=== PATIENT | female | born 1970 | race African-American/Black ===

== ENCOUNTER 2016-12-31 12:28 | Emergency (ER) | payer OTHER ==
[2016-12-31 12:33] VITALS: BP 150/99; PULSE 90; TEMP 98; BMI 26.4
[2016-12-31] MEDS ORDERED: morphine CARPU-JECT 2 MG/1 ML DISP.SYRIN SQ ONE (13:15)
[2016-12-31] MEDS ORDERED: morphine CARPU-JECT 4 MG/1 ML DISP.SYRIN ONE (13:18)
--- NOTE | 2016-12-31 13:30 | PDOC ---
History of Present Illness - General Chief Complaint: Nasal Bleeding Stated Complaint: NASAL BLEEDING Time Seen by Provider: 12/31/16 12:49 History Source: Patient Exam Limitations: No Limitations - History of Present Illness Initial Comments: 12/31/16 13:05 46-year-old female with history of hypertension presents the ED for evaluation of surgical site. patient states has been draining brownish blood from her nose along with feeling as if something is in the back of her throat since yesterday. Patient states had a deviated septum with polyp removal done yesterday without difficulty. Patient also complaining of oxycodone upsetting her stomach which she is supposed to take every 4 hours and Tylenol every 6 hours for breakthrough pain. Patient has no other complaints at this time. Timing/Duration: constant (pressure), intermittent (drainage) Severity: mild Associated Symptoms: denies: headaches, nausea/vomiting, shortness of breath Past History - Travel Traveled outside of the country in the last 30 days: No - Past Medical History Allergies/Adverse Reactions: Allergies Allergy/AdvReac Type Severity Reaction Status Date / Time No Known Allergies Allergy Verified 12/31/16 12:33 Home Medications: Ambulatory Orders Oxycodone HCl 5 mg PO QID PRN 12/31/16 - Surgical History Abdominal Surgery: Yes (HEMMORRHOIDS) - Psycho/Social/Smoking Cessation Hx Suicidal Ideation: No Smoking History: Never smoked Information on smoking cessation initiated: No Patient Lives Alone: No Review of Systems - Review of Systems Able to Perform ROS?: Yes Constitutional: No: Symptoms Reported HEENTM: Yes: Nose Pain, Nose Congestion, Nose Bleeding. No: Throat Pain, Throat Swelling, Difficulty Swallowing Respiratory: No: Symptoms reported Cardiac (ROS): No: Symptoms Reported ABD/GI: No: Nausea Integumentary: No: Symptoms Reported Neurological: Yes: Headache (mild frontal) Hematologic/Lymphatic: No: Symptoms Reported *Physical Exam - Vital Signs Last Vital Signs Temp Pulse Resp BP Pulse Ox 98 F 90 18 150/99 98 12/31/16 12:29 12/31/16 12:29 12/31/16 12:29 12/31/16 12:29 12/31/16 12:29 - Physical Exam General Appearance: Yes: Nourished, Appropriately Dressed. No: Apparent Distress HEENT: positive: EOMI, JAYNE, TMs Normal, Pharynx Normal (no dry blood to posterior pharynx. Uvula midline), Other (noted surgical plastic device to bilateral nasal passages with packing. Minimal oozing of brownish blood noted. Able to breathe via nares) Neck: positive: Supple. negative: Lymphadenopathy (R), Lymphadenopathy (L) Respiratory/Chest: positive: Lungs Clear, Normal Breath Sounds. negative: Respiratory Distress, Accessory Muscle Use Cardiovascular: positive: Regular Rhythm, Regular Rate. negative: Murmur Gastrointestinal/Abdominal: positive: Soft. negative: Tenderness Integumentary: positive: Normal Color, Warm, Moist Neurologic: positive: Motor Strength 5/5 (ambulatory) ED Treatment Course - Medications Given in the ED: ED Medications Discontinued Medications Generic Name Dose Route Start Last Admin Trade Name Tania PRN Reason Stop Dose Admin Morphine Sulfate 4 mg 12/31/16 13:15 12/31/16 13:21 Morphine Injection - SQ 12/31/16 13:16 4 mg ONCE ONE Administration Medical Decision Making - Medical Decision Making 12/31/16 13:34 Patient here for evaluation of surgical device after having surgical repair for deviated septum and removal of polyps in her nasal passages yesterday. Patient states feels as if something is in the back of the throat along with intermittent brownish blood noted. Patient on exam with intact plastic surgical device with minimal brownish drainage noted on guaze. No respiratory distress. Patient states oxycodone and is heavy on her stomach and did not take it the last 4 hours as requested. Will give patient subcutaneous morphine and discharged home with recommendations to apply ice take Tylenol and rest *DC/Admit/Observation/Transfer Diagnosis at time of Disposition: Nasal bleeding - Discharge Dispostion Disposition: HOME Condition at time of disposition: Good - Referrals Referrals: Reinaldo Robbins [Primary Care Provider] - - Patient Instructions Printed Discharge Instructions: DI for Septoplasty Additional Instructions: I gave you some information on the procedure you had and what to expect. I do recommend applying ice to the affected area taking medications needed for discomfort and avoid extreme movement including yelling or sneezing to decrease the pain and drainage. If symptoms do worsen at any given time he may come back to the nearest emergency department
== END 2016-12-31 13:34 | disposition home or self-care (01) ==
LOC: JER 12:28
PROC: 3E023NZ Introduction of Analgesics, Hypnotics, Sedatives into Muscle, Percutaneous Approach (ICD-10-PCS; principal; 2016-12-31)
DX: J95.830 Postprocedural hemorrhage of a respiratory system organ or structure following a respiratory system procedure (principal); Y83.8 Other surgical procedures as the cause of abnormal reaction of the patient, or of later complication, without mention of misadventure at the time of the procedure
CPT/HCPCS: 99281-25

== ENCOUNTER 2021-03-27 08:46 | Emergency (ER) | payer OTHER ==
[2021-03-27 09:00] VITALS: TEMP 98; BMI 25.2
[2021-03-27] MEDS ORDERED: ACETAMINOPHEN 500 MG TABLET (FP) PO ONE (09:27)
[2021-03-27] MEDS ORDERED: SODIUM CHLORIDE 0.9% 1000 ML INFUS.BAG IV ONE (09:27)
[2021-03-27] MEDS ORDERED: METOCLOPRAMIDE HCL INJECTION 10 MG/2 ML VIAL IVPUSH ONE (09:27)
[2021-03-27] MEDS ORDERED: MECLIZINE HCL 25 MG TABLET (FP) PO ONE (09:27)
[2021-03-27] MEDS ORDERED: ACETAMINOPHEN 325 MG TABLET (FP) ONE (10:04)
[2021-03-27] MEDS ORDERED: METOCLOPRAMIDE HCL INJECTION 10 MG/2 ML VIAL ONE (10:04)
[2021-03-27] MEDS ORDERED: MECLIZINE HCL 25 MG TABLET (FP) ONE (10:05)
[2021-03-27 13:16] VITALS: BP 142/92; PULSE 76
== END 2021-03-27 14:31 | disposition home or self-care (01) ==
LOC: JER 08:46
PROC: 3E0333Z Introduction of Anti-inflammatory into Peripheral Vein, Percutaneous Approach (ICD-10-PCS; principal; 2021-03-27)
PROC: 3E033GC Introduction of Other Therapeutic Substance into Peripheral Vein, Percutaneous Approach (ICD-10-PCS; 2021-03-27)
DX: R51.9 Headache, unspecified (principal)
CPT/HCPCS: 70450-TC; 99284-25

== ENCOUNTER 2022-02-08 18:51 | Emergency (ER) | payer OTHER ==
[2022-02-08 19:11] VITALS: BP 145/92; PULSE 88; RESP 19; TEMP 98.6; BMI 24.7
[2022-02-08] MEDS ORDERED: BACITRACIN 15 GM TUBE TOPICAL OINTMENT TP ONE (20:29)
[2022-02-08] MEDS ORDERED: BACITRACIN 15 GM TUBE TOPICAL OINTMENT ONE (20:30)
[2022-02-08] MEDS ORDERED: KETOROLAC TROMETHAMINE 30 MG/1 ML VIAL IM ONE (20:35)
[2022-02-08] MEDS ORDERED: LIDOCAINE 5% TOPICAL PATCH TP ONE (20:35)
[2022-02-08] MEDS ORDERED: ACETAMINOPHEN 500 MG TABLET (FP) PO ONE (20:35)
[2022-02-08] MEDS ORDERED: diazePAM 5 MG TABLET PO ONE (20:35)
[2022-02-08] MEDS ORDERED: LIDOCAINE 5% TOPICAL PATCH ONE (20:37)
[2022-02-08] MEDS ORDERED: KETOROLAC TROMETHAMINE 30 MG/1 ML VIAL ONE (20:38)
[2022-02-08] MEDS ORDERED: ACETAMINOPHEN 500 MG TABLET (FP) ONE (20:38)
[2022-02-08] MEDS ORDERED: diazePAM 5 MG TABLET ONE (20:38)
[2022-02-08] MEDS ORDERED: LIDOCAINE PATCH REMOVAL MC SCH (22:00)
== END 2022-02-08 22:00 | disposition home or self-care (01) ==
LOC: JERFT 18:51
PROC: 3E023GC Introduction of Other Therapeutic Substance into Muscle, Percutaneous Approach (ICD-10-PCS; principal; 2022-02-08)
DX: M25.561 Pain in right knee (principal); M72.2 Plantar fascial fibromatosis
CPT/HCPCS: 73110-TC-RT-FY; 73130-TC-RT-FY; 99284-25

== ENCOUNTER 2022-02-15 11:39 | Emergency (ER) | payer OTHER ==
[2022-02-15 12:08] VITALS: BP 129/86; PULSE 88; RESP 18; TEMP 97.5; BMI 25.6
[2022-02-15] MEDS ORDERED: KETOROLAC TROMETHAMINE 30 MG/1 ML VIAL IM ONE (12:51)
[2022-02-15] MEDS ORDERED: diazePAM 2 MG TABLET PO ONE (12:51)
[2022-02-15] MEDS ORDERED: diazePAM 2 MG TABLET ONE (12:53)
[2022-02-15] MEDS ORDERED: KETOROLAC TROMETHAMINE 30 MG/1 ML VIAL ONE (12:53)
== END 2022-02-15 12:57 | disposition home or self-care (01) ==
LOC: JERFT 11:39
PROC: 3E0233Z Introduction of Anti-inflammatory into Muscle, Percutaneous Approach (ICD-10-PCS; principal; 2022-02-15)
DX: M54.2 Cervicalgia (principal)
CPT/HCPCS: 99284-25

== ENCOUNTER 2022-12-11 06:01 | Emergency (ER) | payer OTHER ==
[2022-12-11 06:20] VITALS: BMI 26.2
[2022-12-11] MEDS: SODIUM CHLORIDE 1,000 ML IV SCH ×2 (08:11→08:43)
[2022-12-11] MEDS ORDERED: ACETAMINOPHEN 1000 MG/100 ML BAG IVPB ONE (08:12)
[2022-12-11] MEDS ORDERED: METOCLOPRAMIDE HCL INJECTION 10 MG/2 ML VIAL IVPB ONE (08:12)
[2022-12-11] MEDS ORDERED: SODIUM CHLORIDE 0.9% 500 ML INFUS.BAG IV ONE (08:15)
[2022-12-11] MEDS ORDERED: ACETAMINOPHEN INJECTION 100 ML IVPB ONE (08:22)
[2022-12-11] MEDS ORDERED: METOCLOPRAMIDE HCL INJECTION 10 MG/2 ML VIAL ONE (08:22)
[2022-12-11 08:25] LABS: EOS % 11.8 % (0-4.5); HEMATOCRIT 38.5 % (32.4-45.2); HEMOGLOBIN 12.9 GM/dL (10.7-15.3); LYMPH % 43.4 % (8-40); MCH 30.3 pg (25.7-33.7); MCHC 33.5 g/dl (32.0-36.0); MEAN CELL VOLUME 90.5 fl (80-96); MEAN PLT VOLUME 8.2 fl (7.5-11.1); MONO % 8.5 % (3.8-10.2); NEUT % 35.3 % (42.8-82.8); PLATELET COUNT 289 10^3/uL (134-434); RBC 4.25 M/mm3 (3.60-5.2); RDW 14.2 % (11.6-15.6); WHITE BLOOD COUNT 5.5 K/mm3 (4.0-10.0)
[2022-12-11 08:31] LABS: INR 1.07 (0.83-1.09); PROTHROMBIN TIME (PATIENT) 12.4 SEC (9.7-13.0)
[2022-12-11 08:34] LABS: ACTIVATED PTT 32.4 SECONDS (25.2-36.5)
[2022-12-11 08:46] LABS: CHLORIDE 111 mmol/L (98-107); POTASSIUM 4.2 mmol/L (3.5-5.1); SODIUM 144 mmol/L (136-145)
[2022-12-11 08:48] LABS: ANION GAP 5 MMOL/L (8-16); CO2 28 mmol/L (21-32)
[2022-12-11 08:50] LABS: ALBUMIN 3.9 g/dl (3.4-5.0); BLOOD UREA NITROGEN 11.6 mg/dL (7-18); GLUCOSE,RANDOM 95 mg/dL (74-106)
[2022-12-11 08:53] LABS: CHOLESTEROL 230 mg/dL (50-200); CREATININE 0.7 mg/dL (0.55-1.3); SGOT/AST 25 U/L (15-37); SGPT/ALT 27 U/L (13-61)
[2022-12-11 08:55] LABS: BILIRUBIN,TOTAL 0.4 mg/dL (0.2-1); LDL CHOLESTEROL (ONLY SJRH) 135 mg/dL (5-100)
[2022-12-11 08:56] LABS: ALK PHOS 98 U/L (45-117); HDL CHOLESTEROL 72 mg/dL (40-60)
[2022-12-11 11:11] LABS: PH,URINE 6.5 (5.0-8.0); URINE APPEARANCE CLEAR; URINE BILIRUBIN NEGATIVE (NEGATIVE); URINE COLOR YELLOW; URINE GLUCOSE (UA) NEGATIVE (NEGATIVE); URINE KETONE NEGATIVE (NEGATIVE); URINE LEUK ESTERASE NEGATIVE (NEGATIVE); URINE NITRITE NEGATIVE (NEGATIVE); URINE PROTEIN NEGATIVE (NEGATIVE); URINE UROBILINOGEN 0.2 mg/dL (0.2-1.0)
[2022-12-11 11:51] VITALS: TEMP 98.3
[2022-12-11 14:25] VITALS: BP 153/95; PULSE 72; RESP 19
== END 2022-12-11 14:35 | disposition home or self-care (01) ==
LOC: JER 06:01
PROC: 3E033NZ Introduction of Analgesics, Hypnotics, Sedatives into Peripheral Vein, Percutaneous Approach (ICD-10-PCS; principal; 2022-12-11)
PROC: 3E033GC Introduction of Other Therapeutic Substance into Peripheral Vein, Percutaneous Approach (ICD-10-PCS; 2022-12-11)
DX: R20.0 Anesthesia of skin (principal); R20.2 Paresthesia of skin; R29.898 Other symptoms and signs involving the musculoskeletal system
CPT/HCPCS: 36415; 70450-TC; 71045-TC-FY; 72125-TC; 80053; 80061; 81003; 82550; 82553; 83036; 84484; 85025; 85610; 85730; 86850; 86900; 86901; 93005; 93010; 99285-25